=== PATIENT | female | born 1975 | race Caucasian/White ===

== ENCOUNTER 2021-04-30 15:47 | Emergency (ER) | payer OTHER, MEDICAID ==
[~2021-04-30] VITALS: Ht 162.6 cm; Wt 91.3 kg
[~2021-04-30 15:47] MED LIST: HYDR-3653 PO; IBUP-1623 PO; ONDA4TAB7 PO
--- NOTE | 2021-04-30 16:28 | NUR ---
[employer]PER[employer]: PT TO ROOM FROM LOBBY
--- NOTE | 2021-04-30 16:45 | NUR ---
PT AMBULATORY TO ROOM 34 W/ C/O LLQ ABD PAIN. PT STATES SHE HAS BEEN DEALING W/ CONSIPTATION AND TOOK A LAXATIVE AND IS NOW HAVING DIARRHEA. PT STATES HX CONSTIPATION/DIARRHEA. PT DENIES ANY DX OF IBS/COLITIS/DIVERTICULITIS. PT RESTING ON GURNEY. NADN. MONITORS APPLIED. VSS. WARM BLANKET PROVIDED. CALL LIGHT IN REACH.
--- NOTE | 2021-04-30 17:29 | NUR ---
PT SLEEPING ON [place]ORAN. NADN. [place].
[2021-04-30] MEDS ORDERED: MORPHINE SULFATE 4 MG/ML, 1ML ONE ×2 (18:15→19:04)
[2021-04-30] MEDS ORDERED: ONDANSETRON 2MG/ML, 2ML ONE (18:15)
[2021-04-30] MEDS: MORPHINE SULFATE 4 MG/ML, 1ML IVPush PRN ×2 (18:18→19:05)
--- NOTE | 2021-04-30 18:20 | NUR ---
PT RESTING ON [facility]. VSS. MEDICATED PER DEC.
[2021-04-30] MEDS ORDERED: ONDANSETRON 2MG/ML, 2ML IVPush ONE (18:30)
[2021-04-30 18:44] LABS: MICROSCOPIC AUTO
[2021-04-30 18:59] LABS: BASOPHILS % (AUTO) 0 % (0-1); EOSINOPHILS % (AUTO) 0 % (1-7); LYMPHOCYTES % (AUTO) 14 % (22-44); MEAN CORPUSCULAR HEMOGLOBIN 29.3 pg (27.0-34.8); MEAN PLATELET VOLUME 7.7 fL (7.4-10.4); MONOCYTES % (AUTO) 7 % (2-9); NEUTROPHILS % (AUTO) 78 % (42-75); PLATELET COUNT 185 x10^3/uL (130-400); RED BLOOD COUNT 4.39 x10^6/uL (3.82-5.3); RED CELL DISTRIBUTION WIDTH 14.1 % (9.6-15.2)
[2021-04-30 19:05] LABS: ALBUMIN 3.5 g/dL (3.4-5.0); ANION GAP 8 mmol/L (5-15); CALCIUM 8.6 mg/dL (8.5-10.1); CHLORIDE 105 mmol/L (98-107)
--- NOTE | 2021-04-30 19:11 | NUR ---
PT TEARFUL IN ROOM AFTER TRANSVAGINAL US. STATES PAIN IS INCREASED. PT MEDICATED PER MAR. RESTING ON GURNEY. VSS.
[2021-04-30 19:13] LABS: ALANINE AMINOTRANSFERASE 31 U/L (12-78); ALKALINE PHOSPHATASE 61 U/L (45-117); BILIRUBIN,TOTAL 0.7 mg/dL (0.2-1.0); CREATININE 0.69 mg/dL (0.55-1.02); TOTAL PROTEIN 7.2 g/dL (6.4-8.2)
--- NOTE | 2021-04-30 19:45 | NUR ---
PT NOW RESTING COMFORTABLY STATES PAIN IS IMPROVED. PT CHART REVIEWED AND PLACED FOR RECHECK.
--- NOTE | 2021-04-30 20:02 | NUR ---
PT TAKEN TO CT IN STABLE CONDITION.
[2021-04-30] MEDS ORDERED: OMNIPAQUE 350 MG/ML, 100ML BOTTLE ONE (20:15)
--- NOTE | 2021-04-30 20:54 | NUR ---
REPORT GIVEN TO KENNA WASHINGTON RN.
--- NOTE | 2021-04-30 20:55 | NUR ---
REPORT RECEIVED FROM LUIS ENRIQUE DIAZ
[2021-04-30] MEDS ORDERED: CIPROFLOXACIN/PMX 400MG/200ML 200 ML ONE (21:24)
[2021-04-30] MEDS ORDERED: METRONIDAZOLE PMX 500MG/100ML 100 ML ONE (21:24)
[2021-04-30] MEDS ORDERED: KETOROLAC 30 MG/1 ML ONE (21:24)
[2021-04-30] MEDS ORDERED: CIPROFLOXACIN/PMX 400MG/200ML 200 ML IVPB ONE (21:30)
[2021-04-30] MEDS ORDERED: PLEASE ENTER HEIGHT AND WEIGHT MC SCH (21:30)
[2021-04-30] MEDS ORDERED: KETOROLAC 30 MG/1 ML IVPush ONE (21:30)
[2021-04-30] MEDS ORDERED: METRONIDAZOLE PMX 500MG/100ML 100 ML IV ONE (21:30)
--- NOTE | 2021-04-30 21:53 | NUR ---
LUIS ENRIQUE GARCIA STARTED 20 G IV TO RIGHT FA, PT HAS BOTH ANITBIOTIC RUNNING AT THIS TIME.
[2021-04-30 23:24] VITALS: BP 115/61
--- NOTE | 2021-04-30 23:25 | NUR ---
Patient given discharge instructions and they have confirmed that they understand the instructions. Patient ambulatory with steady gait.
== END 2021-04-30 23:32 | disposition home or self-care (01) ==
LOC: ED 18:18
DX: K57.32 Diverticulitis of large intestine without perforation or abscess without bleeding (principal); R11.0 Nausea
CPT/HCPCS: 36415; 74177; 76830; 80053; 81001; 83690; 84703; 85025; 96365; 96366; 96368; 96375; 96376; 99285; J0744; J1885; J2270; J2405; Q9967